=== PATIENT | male | born 1990 ===

== ENCOUNTER 2019-06-15 12:59 | Emergency (ER) | payer OTHER ==
[~2019-06-15] VITALS: Ht 185.4 cm; Wt 105.2 kg
[2019-06-15] MEDS ORDERED: SKELAXIN800 MG PO (14:16)
[2019-06-15] MEDS ORDERED: MEDROLPACK PO (14:16)
== END 2019-06-15 14:21 | disposition home or self-care (01) ==
LOC: ER 12:59
DX: S33.5XXA Sprain of ligaments of lumbar spine, initial encounter (principal); X50.0XXA Overexertion from strenuous movement or load, initial encounter; Y93.89 Activity, other specified; Y92.89 Other specified places as the place of occurrence of the external cause; Y99.8 Other external cause status